=== PATIENT | female | born 1995 | race American Indian/Alaskan Native ===

== ENCOUNTER 2017-04-10 18:04 | Emergency (ER) | payer OTHER, BC ==
[2017-04-10 21:48] LABS: HCG Qualitative,Urine Negative (Negative)
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
[2017-04-10 23:54] VITALS: BP 107/55
== END 2017-04-10 23:55 | disposition home or self-care (01) ==
LOC: ED 18:04
DX: M25.512 Pain in left shoulder (principal); M25.511 Pain in right shoulder
CPT/HCPCS: 72040; 81025; 99283